=== PATIENT | male | born 1935 | race Caucasian/White ===

== ENCOUNTER → 2019-04-23 | Outpatient (CLI) | payer MEDICARE | END | disposition home or self-care (01) | LOC: RAH 12:54 | PROVIDERS: ATTEND Family Medicine | DX: R31.9 Hematuria, unspecified (principal); M47.816 Spondylosis without myelopathy or radiculopathy, lumbar region; I70.90 Unspecified atherosclerosis; Z90.49 Acquired absence of other specified parts of digestive tract | CPT/HCPCS: 74176 ==

== ENCOUNTER 2019-06-27 07:38 | Day surgery (SDC) | payer MEDICARE ==
[2019-06-26 15:01] VITALS: BP 134/59
[2019-06-26 15:02] LABS: BASOPHILS % (AUTO) 1.2 % (0.0-5.0); EOSINOPHILS % (AUTO) 1.5 % (0.0-8.0); HEMATOCRIT 29.5 % (42-54); LYMPHOCYTES % (AUTO) 27.1 % (21.0-51.0); MEAN CORPUSCULAR HEMOGLOBIN 37.7 pg (27.0-33.0); MEAN CORPUSCULAR HGB CONC 33.7 g/dL (32.0-36.0); MEAN CORPUSCULAR VOLUME 111.8 fL (79-99); MONOCYTES % (AUTO) 8.4 % (3.0-13.0); NEUTROPHILS % (AUTO) 61.8 % (40.0-77.0); NUCLEATED RED BLOOD CELLS 0.4 % (0.0-0.19); PLATELET COUNT (AUTO) 174 K/uL (130-400); RED BLOOD CELL COUNT(AUTO) 2.64 MIL/uL (4.50-6.20); RED CELL DISTRIBUTION WIDTH 18.6 % (11.0-15.5); WHITE BLOOD COUNT (AUTO) 4.2 K/uL (4.8-10.8)
[2019-06-26 15:07] LABS: CREATININE 1.1 mg/dL (0.5-1.5); POTASSIUM 4.3 mmol/L (3.5-5.1)
[2019-06-27] VITALS (18 sets, daily range): BP systolic 113–140; BP diastolic 52–78
[~2019-06-27] VITALS: Ht 181.6 cm; Wt 104.6 kg
[~2019-06-27 07:38] MED LIST: ENAL10TA PO; GEMF600T5 PO; GLIP5TAB11 PO; IRON1CAP28 PO; LEVO500T89 PO; METF-446 PO; TAMS-1 PO; TERA2CAP4 PO
[2019-06-27] MEDS: CEFTRIAXONE SODIUM 1 GM IVP SCH ×2 (08:30→10:00)
[2019-06-27] MEDS ORDERED: SODIUM CHLORIDE 0.9% 1000ML 1,000 ML IV ONE (08:33)
[2019-06-27] MEDS ORDERED: IOHEXOL-350 50ML VIAL IV ONE (08:49)
[2019-06-27] MEDS ORDERED: LIDOCAINE PF 2% 5ML ABBOJECT ONE (09:16)
[2019-06-27] MEDS ORDERED: MIDAZOLAM HCL 1 MG/ML 2ML VIAL ONE (09:16)
[2019-06-27] MEDS ORDERED: PROPOFOL 10 MG/ML 20ML VIAL IV ONE (09:16)
[2019-06-27] MEDS ORDERED: FENTANYL CITRATE PF 50 MCG/1 ML 2ML VIAL ONE (09:16)
[2019-06-27] MEDS ORDERED: OPIUM/BELLADONNA ALKALOIDS 1 EACH SUPP.RECT RC ONE (11:01)
[2019-06-27] MEDS ORDERED: EPHEDRINE SULFATE 50 MG/ML AMPULE ONE (11:19)
[2019-06-27] MEDS ORDERED: PHENAZOPYRIDINE HCL 200 MG TABLET ONE (12:07)
--- NOTE | 2019-06-27 14:41 | NUR ---
RECEIVED REPORT FROM MARY CLAY RN , PER PACU NURSE AWARE OF BLOODY URINE AND NO NEW ORDER OKAY TO BE DISCHARGED HOME
== END 2019-06-27 12:35 | disposition home or self-care (01) ==
LOC: DAH 07:38
PROVIDERS: ATTEND Urology
DX: C67.0 Malignant neoplasm of trigone of bladder (principal); R31.0 Gross hematuria; N40.1 Benign prostatic hyperplasia with lower urinary tract symptoms; E11.9 Type 2 diabetes mellitus without complications; Q54.9 Hypospadias, unspecified
CPT/HCPCS: 36415; 52235; 74420; 80048; 82948 ×2; 85025; 93005; A4344; A4358; A4510; A4600; C1758; J0696; J2001; J2250; J2704; J3010; J3490; J7030 ×2; Q9967

== ENCOUNTER 2019-08-15 07:25 | Day surgery (SDC) | payer MEDICARE ==
[2019-08-13 16:25] VITALS: BP 147/58
[2019-08-13 16:29] LABS: BASOPHILS % (AUTO) 5.4 % (0.0-5.0); EOSINOPHILS % (AUTO) 3.7 % (0.0-8.0); HEMATOCRIT 28.7 % (42-54); MEAN CORPUSCULAR HEMOGLOBIN 37.6 pg (27.0-33.0); MEAN CORPUSCULAR HGB CONC 34.7 g/dL (32.0-36.0); MEAN CORPUSCULAR VOLUME 108.3 fL (79-99); MONOCYTES % (AUTO) 7.3 % (3.0-13.0); NEUTROPHILS % (AUTO) 56.6 % (40.0-77.0); NUCLEATED RED BLOOD CELLS 0.5 % (0.0-0.19); PLATELET COUNT (AUTO) 190 K/uL (130-400); RED BLOOD CELL COUNT(AUTO) 2.65 MIL/uL (4.50-6.20); WHITE BLOOD COUNT (AUTO) 3.9 K/uL (4.8-10.8)
--- NOTE | 2019-08-13 16:34 | NUR ---
ABNORMAL EKG DR GUERRERO REVIEWED EKG DONE ON 08/13/19, NO NEW ORDERS, OK TO PROCEED WITH SURGERY
[2019-08-13 16:38] LABS: CREATININE 1.1 mg/dL (0.5-1.5); POTASSIUM 4.9 mmol/L (3.5-5.1)
--- NOTE | 2019-08-14 10:03 | NUR ---
LABS FAXED AND REPORTED ABNORMAL CBC TO DR. PAWEL GUAJARDO ASST. SHE WILL INFORM DR. TAPIA.
[~2019-08-15] VITALS: Ht 182.9 cm; Wt 104.8 kg
[2019-08-15] VITALS (17 sets, daily range): BP systolic 120–149; BP diastolic 55–64
[~2019-08-15 07:25] MED LIST changes: -LEVO500T89 PO; +MITOMYCIN 40 MG VIAL SCH; +MITOMYCIN IV SCH; +STERILE WATER IV SCH
[2019-08-15] MEDS ORDERED: SODIUM CHLORIDE 0.9% 1000ML 1,000 ML IV ONE (07:55)
[2019-08-15] MEDS ORDERED: MITOMYCIN 40 MG VIAL ONE (07:55)
[2019-08-15] MEDS ORDERED: PROPOFOL 10 MG/ML 20ML VIAL IV ONE (07:59)
[2019-08-15] MEDS ORDERED: LIDOCAINE PF 2% 5ML ABBOJECT ONE (07:59)
[2019-08-15] MEDS ORDERED: FENTANYL CITRATE PF 50 MCG/1 ML 2ML VIAL ONE (07:59)
[2019-08-15] MEDS: LEVOFLOXACIN 500 MG/D5W 100 ML 100 ML IV SCH ×2 (08:20→08:40)
[2019-08-15] MEDS ORDERED: OPIUM/BELLADONNA ALKALOIDS 1 EACH SUPP.RECT RC ONE (09:14)
[2019-08-15] MEDS ORDERED: PHENAZOPYRIDINE HCL 200 MG TABLET ONE (10:03)
--- NOTE | 2019-08-15 11:10 | NUR ---
PT LEFT VIA WHEELCHAIR IN PVT CAR WITH SPOUSE. RX WAS GIVEN TO WITH D/C INSTRUCTIONS AND F/U VISIT. NO COMPLICATION UPON D/C
== END 2019-08-15 11:10 | disposition home or self-care (01) ==
LOC: DAH 07:25
PROVIDERS: ATTEND Urology
DX: C67.0 Malignant neoplasm of trigone of bladder (principal); C67.2 Malignant neoplasm of lateral wall of bladder; Q54.9 Hypospadias, unspecified; F17.220 Nicotine dependence, chewing tobacco, uncomplicated; E11.9 Type 2 diabetes mellitus without complications; I10 Essential (primary) hypertension; K21.9 Gastro-esophageal reflux disease without esophagitis; E78.00 Pure hypercholesterolemia, unspecified; Z79.84 Long term (current) use of oral hypoglycemic drugs; Z98.890 Other specified postprocedural states; Z79.899 Other long term (current) drug therapy; Z83.3 Family history of diabetes mellitus; Z90.49 Acquired absence of other specified parts of digestive tract
CPT/HCPCS: 36415; 51720; 52224; 80048; 82948 ×2; 85025; 88305; 93005; A4215; A4221; A4222; A4223; A4344; A4358; A4663; A6260; J1956; J2001; J2704; J3010; J7030 ×2; J9280 ×3

== ENCOUNTER → 2019-12-08 | Outpatient (CLI) | payer MEDICARE ==
[~2019-12-08] MED LIST changes: -MITOMYCIN 40 MG VIAL SCH; -MITOMYCIN IV SCH; -STERILE WATER IV SCH
== END | disposition home or self-care (01) ==
LOC: RAH 15:07
PROVIDERS: ATTEND Family Medicine
DX: M19.012 Primary osteoarthritis, left shoulder (principal); M75.82 Other shoulder lesions, left shoulder
CPT/HCPCS: 73221

== ENCOUNTER 2023-10-13 15:10 | Emergency (ER) | payer MEDICARE, OTHER ==
[~2023-10-13] VITALS: Ht 180.3 cm; Wt 102.1 kg
[~2023-10-13 15:10] MED LIST changes: +ENAL-89 PO; -ENAL10TA PO; -GEMF600T5 PO; +GEMF600T89 PO; -GLIP5TAB11 PO; +GLIP5TAB15 PO
[2023-10-13 15:19] VITALS: BP 123/58; PULSE 94; RESP 16; O2SAT 99
[2023-10-13] MEDS ORDERED: CEPH500C2 PO (16:51)
== END 2023-10-13 17:23 | disposition home or self-care (01) ==
LOC: EDH 15:10
DX: S91.119A Laceration without foreign body of unspecified toe without damage to nail, initial encounter (principal); E11.9 Type 2 diabetes mellitus without complications; Z79.84 Long term (current) use of oral hypoglycemic drugs; Z79.899 Other long term (current) drug therapy; W01.0XXA Fall on same level from slipping, tripping and stumbling without subsequent striking against object, initial encounter; Y93.89 Activity, other specified; Y92.89 Other specified places as the place of occurrence of the external cause; Y99.8 Other external cause status
CPT/HCPCS: 73660